=== PATIENT | female | born 1935 | race Caucasian/White ===

== ENCOUNTER 2017-07-25 06:54 | Inpatient (IN) | payer MEDICARE, OTHER ==
--- NOTE | 2017-07-25 07:43 | ED Physician Documentation ---
Altered Mental Status - HISTORIAN Historian: patient - HPI Stated Complaint: hi bs last noct over 500 Chief Complaint: Altered Mental Status Additional Information: pt adm w ams-will not answer questions plus bs last noct more than 500 and fsbs this [id number]. she is not in apparent distress-lies quietly mooves appropriately but will not respond to questions Onset: days ago (1-2), continues in ED Last known Well Date: 07/24/17 Last Known Well Time: 12:00 Last known Well Code/Unknown Code: Unknown Character of Altered Mental Status: other (just does not answer questions). denies: confused, combative, agitated Context: [facility] resident, chronic dementia Cognition is Usually: poor alertness Associated Symptoms: vomiting - ROS EYES/ENT: problems with vision CVS/RESP: none GI/: vomiting (last noct). denies: abdominal pain MS/SKIN/LYMPH: other - PAST HX Past History: confusion, diabetes Type 2, dementia, other (htn gerd uti neuropathic ub prev cva) Other History: hyperlipidemia, hypertension Allergies/Adverse Reactions: Allergies Allergy/AdvReac Type Severity Reaction Status Date / Time No Known Allergies Allergy Verified 07/25/17 07:09 Home Medications: Ambulatory Orders Medication Instructions Recorded Acetaminophen [Non-Aspirin] 2 tab PO BID 07/25/17 Aspirin [Aspirin EC] 1 tab PO DAILY 07/25/17 Docusate Sodium [Move It Along] 1 tab PO DAILY 07/25/17 Metoprolol Succinate [Toprol Xl] 1 tab PO BID 07/25/17 - SOCIAL HX Smoking History: non-smoker Alcohol Use: none Drug Use: none - FAMILY HX Family History: no significant history - VITAL SIGNS Vital Signs: Vital Signs Temp Pulse Resp BP Pulse Ox 96.7 F L 114 H 16 166/74 96 07/25/17 06:54 07/25/17 10:07 07/25/17 10:07 07/25/17 10:07 07/25/17 10:07 - REVIEWED ASSESSMENTS Nursing Assessment Reviewed: Yes Vitals Reviewed: Yes ED Results Lab/Radiology - Lab Results Lab Results: Lab Results 07/25/17 07/25/17 07:30 07:30 WBC 15.60 K/ul H K/ul (4.00-12.00) RBC 4.97 M/ul M/ul (3.90-5.20) Hgb 14.2 g/dL g/dL (12.0-16.0) Hct 44.5 % % (34.5-46.5) MCV 89.7 fl fl (80.0-100.0) MCH 28.7 pg pg (28.0-34.0) MCHC 31.9 g/dL g/dL (30.0-36.0) RDW 14.7 % H % (11.3-14.3) Plt Count 454 K/mm3 H K/mm3 (130-400) Neut % (Auto) 91.1 % H % (39.0-79.0) Lymph % (Auto) 3.8 % L % (16.0-50.0) [place] % (Auto) 4.2 % % (0.0-11.0) Eos % (Auto) 0.3 % % (0.0-6.8) Baso % (Auto) 0.1 (0.0-1.5) Neut # (Auto) 14.2 # k/uL H # k/uL (1.4-7.7) Lymph # (Auto) 0.6 # k/uL # k/uL (0.6-4.0) [place] # (Auto) 0.7 # k/uL # k/uL (0.0-0.9) Eos # (Auto) 0.0 # k/uL # k/uL (0.0-0.6) Baso # (Auto) 0.0 # k/uL # k/uL (0.0-0.5) Reactive Lymphs % 0.5 % % (0.0-5.0) Reactive Lymphs # 0.1 # k/uL # k/uL (0.0-0.8) Sodium 146 mmol/L H mmol/L (136-145) Potassium 4.4 mmol/L mmol/L (3.5-5.1) Chloride 105 mmol/L mmol/L (98-107) Carbon Dioxide 28 mmol/L mmol/L (22-30) BUN 39 mg/dL H mg/dL (7-17) Creatinine 0.80 mg/dL mg/dL (0.52-1.04) Estimated Creat Clear 85 Est GFR ( Amer) > 60 (60 - ) Est GFR (Non-Af Amer) > 60 (60 - ) Glucose 390 mg/dL H mg/dL (74-106) Calcium 10.5 mg/dL H mg/dL (8.4-10.2) Total Bilirubin 0.2 mg/dL mg/dL (0.2-1.3) AST 15 U/L U/L (15-46) ALT 28 U/L U/L (13-69) Alkaline Phosphatase 93 U/L U/L (38-126) Total Protein 7.4 g/dL g/dL (6.3-8.2) Albumin 4.7 g/dL g/dL (3.5-5.0) - Orders Orders: ED Orders Category Date Time Status Assess pulse oximetry Q1H Care 07/25/17 07:46 Active Continuous EKG monitoring Q1H Care 07/25/17 07:46 Active Document Bowel Movement Q8H Care 07/25/17 10:[address] Babcock NOW Care 07/25/17 10:45 Ordered Further Nursing Orders 1T Care 07/25/17 10:45 Active Inpatient Telemetry NOW Care 07/25/17 10:45 Ordered Monitor for changes in mental Q2H Care 07/25/17 10:[address] IV Lock 1T Care 07/25/17 07:47 Active Regular Diet 07/25/17 Dinner Ordered Regular Diet 07/25/17 Lunch Ordered CBC/PLATELET/DIFF Routine Lab 07/25/17 07:30 Completed CMP Routine Lab 07/25/17 07:30 Completed INSULIN 1 Stat Lab 07/25/17 07:49 Received URINALYSIS Routine Lab 07/25/17 Ordered 0.9 % Sodium Chloride [Normal Saline] 1,000 ml Med 07/25/17 08:00 Discontinued IV Q10H 0.9 % Sodium Chloride [Normal Saline] 1,000 ml Med 07/25/17 07:58 Discontinued IV Q1H Chem Sticks Med 07/25/17 08:00 Active 1 each CHEMQ Chem Sticks Med 07/25/17 09:15 Discontinued 1 each CHEMQ Docusate Sodium [Move It Along] Med 07/26/17 09:00 Ordered 1 tab PO DAILY Fenofibrate Nanocrystallized [Tricor] Med 07/26/17 09:00 Ordered 145 mg PO DAILY Insulin Regular, Human [Humulin R] Med 07/25/17 09:05 Discontinued 5 unit SQ NOW ONE Losartan/Hydrochlorothiazide [Hyzaar 100-25 Tablet] Med 07/26/17 09:00 Ordered 1 each PO DAILY Memantine HCl [Namenda] Med 07/25/17 21:00 Active 10 mg PO BID Metoprolol Succinate [Toprol Xl] Med 07/25/17 21:00 Discontinued 1 tab PO BID Transfer Routine Transfer 07/25/17 Completed Altered Mental Status Physical - Physical Exam General Appearance: moderate distress, other (looks around and moves inbed but will nor respond to questions). No: lethargic Neuro/Psych: depression, other (will no answer questions - says not unusual-does not ambulate except in wheel chair) abnml respond to command. No: eyes open Peripheral Exam: motor nml, sensation nml, reflexes nml HEENT: other (must force eyes open -they appear normal says this is notunusual for her) Neck: normal inspection Respiratory: no resp distress, chest non-tender, breath sounds normal CVS: reg rate & rhythm, heart sounds normal Abdomen: non-tender, no distention Skin: warm/dry, normal color. No: cyanosis, diaphoresis, jaundice, mottled Extremities: non-tender, normal range of motion, no edema Discharge Clincal Impression: uncontrolled diabetes mellitus, s/p cva adv dementia Comments: julia bhatti/zabrina and DR BABCOCK admit Condition: Fair Disposition: ADMITTED INPATIENT Decision to Admit: [id number] Decision Time: 11:16
[2017-07-25] MEDS ORDERED: 0.9 % SODIUM CHLORIDE 1,000 ML IV ONE ×2 (07:55→07:58)
[2017-07-25] MEDS ORDERED: 0.9 % SODIUM CHLORIDE 1,000 ML IV SCH (08:00)
[2017-07-25 08:04] LABS: BASOPHILS % 0.1 (0.0-1.5); EOSINOPHILS % 0.3 % (0.0-6.8); MEAN CORPUSCULAR HEMOGLOBIN 28.7 pg (28.0-34.0); MEAN CORPUSCULAR VOLUME 89.7 fl (80.0-100.0); MONOCYTES % 4.2 % (0.0-11.0); NEUTROPHILS # 14.2 # k/uL (1.4-7.7); eGFR (African) > 60; eGFR (Non-African) > 60
[2017-07-25] MEDS ORDERED: INSULIN REGULAR, HUMAN 100 UNIT/ML 3ML VIAL SQ ONE (09:05)
[2017-07-25] MEDS ORDERED: ACETAMINOPHEN 325 MG TABLET ONE (11:12)
[2017-07-25] MEDS ORDERED: MEMANTINE HCL 10 MG TABLET PO ONE (11:12)
--- NOTE | 2017-07-25 12:04 | History and Physical Report ---
History of Present Illnes - History of Present Illness Reason for Visit: decrease oral intaktake, hyperglycemia History of Present Illness: 81-year-old white female who is a resident at [facility]. Approximately 36 hours ago patient started having some nausea vomiting with some difficulties in keeping any oral intake down. Patient was reported to have vomited five times yesterday. Patient has had some loose bowel movements but no diarrhea. No hematemesis has been noted. No melena hematochezia has been appreciated. Patient is not had any fever or chills at the nursing staff is aware. Today patient started having elevated blood sugars in the 400s. Patient is diabetic but is on oral hypoglycemic agents only. Patient was subsequently transferred to the ED. Since patient was not having good oral intake and was elected to admit the patient for further care and evaluation. It appears that the patient may need insulin therapy in order to maintain her blood sugars in the immediate future. Patient is usually not converses however she usually is up in a wheelchair propel herself around which she has not been doing. 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: CVA, Dementia (alzheimer's), Other (RLS) Gastrointestinal: Constipation, GERD Heme/Onc: Anemia NOS Endocrine: Diabetes (type 2), Other (vit D def) - Past Surgical History Past Surgical History: Hysterectomy, Tonsillectomy - Past Family History Father Family History: Mother Family History: CAD, - Past Social History Smoke: No Occupation: retired Alcohol: None Drugs: None Lives: Shelter Domestic Violence: Negative - Health Maintenance Health Maintenance: Influenza Vaccine, Pneumococcal Vaccine Influenza Vaccine: Current for this Influenza Season Pneumonia Vaccine: Yes Resuscitation Status: DNR - Unable to Obtain History Unable to Obtain: Yes Review of Systems - Review of Systems Constitutional: Weakness. negative: Fever, Chills Eyes: negative: pain, conjunctivae inflammation ENT: negative: Ear Discharge, Nose Discharge, Nose Congestion, Mouth Swelling Respiratory: negative: Cough, Shortness of Breath, Hemoptysis, SOB with Excertion, Wheezing Cardiovascular: negative: Chest Pain, Palpitations, Edema Gastrointestinal: Nausea, Vomiting. negative: Abdominal Pain, Diarrhea, Constipation, Hematochezia Genitourinary: Incontinence. negative: Dysuria, Frequency Musculoskeletal: negative: Neck Pain, Back Pain Skin: negative: Rash Neurological: Weakness, Confusion. negative: Numbness - Medications/Allergies Allergies/Adverse Reactions: Allergies Allergy/AdvReac Type Severity Reaction Status Date / Time No Known Allergies Allergy Verified 07/25/17 07:09 Home Medications: Home Medications Acetaminophen [Non-Aspirin] 2 tab PO BID 07/25/17 Aspirin [Aspirin EC] 1 tab PO DAILY 07/25/17 Docusate Sodium [Move It Along] 1 tab PO DAILY 07/25/17 Metoprolol Succinate [Toprol Xl] 1 tab PO BID 07/25/17 Current Inpatient Medications: Current Inpatient Medications Acetaminophen (Tylenol) 325 mg PO BID ADONIS Aspirin (Ecotrin) 81 mg PO DAILY ADONIS Docusate Sodium (Docusol Kids) 100 mg PO DAILY ADONIS Fenofibrate (Tricor) 160 mg PO QD ADONIS Hydrochlorothiazide (Hydrodiuril) 25 mg PO QD ADONIS Losartan Potassium (Cozaar) 100 mg PO QD ADONIS Memantine (Namenda) 10 mg PO BID ADONIS Metoprolol Tartrate (Lopressor) 25 mg PO BID [facility] Miscellaneous (Chem Sticks) 1 each CHEMQID [facility] Exam - Exam Vital Signs: Vital Signs (72 hours) 07/25/17 07/25/17 10:07 10:18 Temperature 98.1 F Pulse Rate [ 114 H 114 H Left Pulse ox] Respiratory 16 24 Rate Blood Pressure 166/74 194/77 [Right Arm] O2 Sat by Pulse 96 98 Oximetry General: Alert (wake, does no respond to verbal qestioning), No acute distress. No: Oriented to Person, Oriented to Place, Oriented to Time HEENT: Atraumatic, PERRLA, Nose Mucous membr. moist/[place]. No: Mouth Mucous membr. moist/[place] (dry) Neck: No: Stridor, Rigidity, Lymphadenopathy Carotids: WNL Thyroid: WNL Lungs: Clear to auscultation, Normal air movement. No: Speaks full Sentences, Respiratory Distress, Wheezes, Rales, Rhonchi Cardiovascular: Regular rate, Normal S1, Normal S2, No murmurs Abdomen: Normal bowel sounds, Soft, No tenderness, No hepatospenomegaly, No masses. No: Distended Integumentary: Normal, [place], Warm, Dry Extremities: No clubbing, No cyanosis, No edema Neurological: Strength Equal Bilat, Normal tone, Cranial nerves 3-12 NL, Reflexes 2+ Psych/Mental Status: No: Mental status NL (at baseline), Appropriate Affect, Intact Judgment Assessment/Plan - Assessment/Plan (1) Dehydration Status: Acute Current Visit: Yes Plan: I will start the patient on normal saline which lobe rehydration. Will watch patient urinary output. Will recheck electrolytes in the a.m. Patient does have a mild elevated sodium at this time. (2) Dementia Status: Chronic Current Visit: No Qualifiers: Dementia type: Alzheimer's disease Assessment: monitor (3) Hypertension Status: Acute Current Visit: No Plan: continue home meds (4) Diabetes type 2, uncontrolled Status: Acute Current Visit: Yes Qualifiers: Diabetes mellitus complication status: without complication Diabetes mellitus intermediate insulin use: without manager intermediate use Qualified Code(s): E11.65 - Type 2 diabetes mellitus with hyperglycemia Assessment: We will monitor patient blood sugars. Patient may need to be started on sliding scale insulin. Will encourage oral intake. (5) Nausea and vomiting Status: Acute Current Visit: Yes Plan: Patient will have Zofran ordered for IV use if needed. Suspect the patient may have a viral gastroenteritis. Patient does have a leukocytosis at this time. Will get a urine specimen and a chest x-ray to rule out other etiology. Patient did have an Abdominal film done yesterday which was felt to be normal. VTE Assessment - RISK FACTOR SCORE VTE RISK FACTOR SCORES: AGE OVER 60 YEARS, ACUTE INFECTION OTHER THEN SEPSIS - RISK VTE MODERATE RISK: SCORE OF 2 (RISK PROXIMAL DVT 2-4%) PROPHYAXIS NEEDED
[2017-07-25] MEDS ORDERED: ONDANSETRON HCL/PF 4 MG/ 2ML VIAL IVP ONE (12:07)
[2017-07-25] MEDS ORDERED: 0.9 % SODIUM CHLORIDE 250 ML IV.SOLN IV SCH ×2 (12:30→14:00)
[2017-07-25] MEDS ORDERED: ENOXAPARIN SODIUM 30 MG/0.3 ML DISP.SYRIN SQ SCH (13:00)
[2017-07-25 14:00] LABS: APPEARANCE,URINE CLOUDY (CLEAR); COLOR,URINE YELLOW (YELLOW); OCCULT BLOOD,URINE 1+ (NEGATIVE); PH URINE 5.5 (5.0 - 8.0); UROBILINOGEN URINE 0.2 Eu (0.2-1.0)
[2017-07-25] MEDS ORDERED: ASPIRIN EC 81 MG TABLET.DR ONE (14:05)
[2017-07-25] MEDS: LOSARTAN POTASSIUM 50 MG TABLET PO SCH (14:35)
[2017-07-25] MEDS: DOCUSATE SODIUM 100 MG/10 ML S/F LIQUID PO SCH (14:36)
[2017-07-25] MEDS: HYDROCHLOROTHIAZIDE 25 MG TABLET PO SCH (14:37)
[2017-07-25] MEDS: FENOFIBRATE 160 MG TABLET PO SCH (14:37)
[2017-07-25] MEDS: ENOXAPARIN SODIUM 30 MG/0.3 ML DISP.SYRIN SQ SCH (14:38)
[2017-07-25] MEDS: 0.9 % SODIUM CHLORIDE 1,000 ML IV SCH (14:57)
[2017-07-25 16:14] LABS: AMORPHOUS SEDIMENT,UR FEW (NEGATIVE)
[2017-07-25 19:53] VITALS: BMI 29.0
[2017-07-25] MEDS: METOPROLOL TARTRATE 25 MG TABLET PO SCH (20:59)
[2017-07-25] MEDS: ACETAMINOPHEN 325 MG TABLET PO SCH (21:00)
[2017-07-25] MEDS: MEMANTINE HCL 10 MG TABLET PO SCH (21:00)
[2017-07-25] MEDS ORDERED: ACETAMINOPHEN 325 MG TABLET PO SCH (21:00)
[2017-07-25] MEDS ORDERED: METOPROLOL SUCCINATE PO SCH (21:00)
[2017-07-26] MEDS: 0.9 % SODIUM CHLORIDE 1,000 ML IV SCH
[2017-07-26 07:16] LABS: BASOPHILS % 0.1 (0.0-1.5); EOSINOPHILS % 0.1 % (0.0-6.8); MEAN CORPUSCULAR HEMOGLOBIN 27.8 pg (28.0-34.0); MEAN CORPUSCULAR VOLUME 94.7 fl (80.0-100.0); NEUTROPHILS # 15.5 # k/uL (1.4-7.7)
[2017-07-26 07:46] LABS: eGFR (African) > 60; eGFR (Non-African) > 60
[2017-07-26] MEDS ORDERED: INSULIN REGULAR, HUMAN 100 UNIT/ML 3ML VIAL SQ ONE ×2 (07:54→10:48)
[2017-07-26] MEDS ORDERED: CIPROFLOXACIN/D5W 400 MG in PREMIX BAG 1 BAG IV SCH (08:30)
[2017-07-26] MEDS ORDERED: FENOFIBRATE NANOCRYSTALLIZED 145 MG PO SCH (09:00)
[2017-07-26] MEDS ORDERED: INSULIN REGULAR, HUMAN 100 UNIT/ML 3ML VIAL SQ SCH (09:00)
[2017-07-26] MEDS ORDERED: HYDROCHLOROTHIAZIDE PO SCH (09:00)
[2017-07-26] MEDS ORDERED: LOSARTAN PO SCH (09:00)
[2017-07-26] MEDS ORDERED: DOCUSATE SODIUM PO SCH (09:00)
[2017-07-26] MEDS ORDERED: DEXTROSE 5 %-0.45 % SOD CHLORD 1,000 ML IV SCH (09:00)
[2017-07-26] MEDS ORDERED: ASPIRIN EC 81 MG TABLET.DR PO SCH (09:00)
[2017-07-26] MEDS: DOCUSATE SODIUM 100 MG/10 ML S/F LIQUID PO SCH (09:07)
[2017-07-26] MEDS: ACETAMINOPHEN 325 MG TABLET PO SCH ×2 (09:07→20:39)
[2017-07-26] MEDS: ASPIRIN EC 81 MG TABLET.DR PO SCH (09:08)
[2017-07-26] MEDS: METOPROLOL TARTRATE 25 MG TABLET PO SCH ×2 (09:08→20:39)
[2017-07-26] MEDS: MEMANTINE HCL 10 MG TABLET PO SCH ×2 (09:08→20:39)
[2017-07-26] MEDS ORDERED: cefTRIAXone SODIUM 1 GM VIAL ONE (09:36)
[2017-07-26] MEDS: cefTRIAXone SODIUM 1 GM in 0.9 % SODIUM CHLORIDE 50 ML IV SCH (09:47)
[2017-07-26] MEDS: INSULIN REGULAR, HUMAN 100 UNIT/ML 3ML VIAL SQ SCH ×3 (12:55→20:39)
[2017-07-26] MEDS: LOSARTAN POTASSIUM 50 MG TABLET PO SCH (12:55)
[2017-07-26] MEDS: FENOFIBRATE 160 MG TABLET PO SCH (12:55)
[2017-07-26] MEDS: HYDROCHLOROTHIAZIDE 25 MG TABLET PO SCH (12:55)
[2017-07-26] MEDS: PIPERACILLIN SODIUM/TAZOBACTAM 3.375 GM VIAL IV SCH ×2 (13:44→18:02)
[2017-07-26] MEDS ORDERED: SODIUM CHLORIDE 0.45 % 1,000 ML IV SCH (16:00)
[2017-07-26] MEDS: ENOXAPARIN SODIUM 30 MG/0.3 ML DISP.SYRIN SQ SCH (16:02)
--- NOTE | 2017-07-26 17:51 | Diagnostic Imaging Report ---
[facility]MED SURG [facility] [id number] Formerly [facility], [facility] [address] [place] [address]. [id number] Report Submission Date: Jul 26, 2017 11:02:23 AM CDT Patient Study Name: MARÍA ELENA PARKER Date: Jul 26, 2017 9:31:07 AM CDT Modality Type: DX Gender: F Description: ABDOMEN : 35 Institution: [facility] Physician: [facility] /MED SURG Examination: Obstruction series History: PORTABLE KUB, NAUSEA/ VOMITING, PT UNABLE TO FOLLOW BREATHING INSTRUCTIONS OR GIVE MORE HX (Hx) Findings: 2 views obtained of the abdomen. Motion artifact and body habitus limits sensitivity. Loops of stool and air filled large bowel. No definite small bowel dilation. Lumbar degenerative changes and curvature. Right hip fixation hardware. Impression: Limited examination without definite evidence for obstruction. Electronically signed on Jul 26, 2017 11:02:23 AM CDT by: Fernando DIEGO
--- NOTE | 2017-07-26 17:51 | Diagnostic Imaging Report ---
[facility] [id number] Formerly [facility] [address] [id number] Report Submission Date: Jul 26, 2017 11:04:06 AM CDT Patient Study Name: MARÍA ELENA PARKER Date: Jul 26, 2017 9:39:56 AM CDT Modality Type: DX Gender: F Description: CHEST : 35 Institution: [facility] Physician: [facility]/MED SURG Examination: Portable chest History: PCXR, LEUKOCYTOSIS, PT UNABLE TO HOLD BREATH OR GIVE FURTHER HX (Hx) Comparison exam: None provided. Findings: Single view of the chest demonstrates a hypoventilated inspiratory effort resulting in crowding of the cardiac and mediastinal silhouette. Mildly tortuous aorta. Mild lung base parenchymal haziness. No blunting of the costophrenic margins. Osseous structures are appropriate for age. Impression: Poor inspiratory effort. Mild lung base parenchymal haziness. No evidence for effusion. Electronically signed on Jul 26, 2017 11:04:06 AM CDT by: Fernando DIEGO
[2017-07-27] MEDS: PIPERACILLIN SODIUM/TAZOBACTAM 3.375 GM VIAL IV SCH ×4 (00:54→16:26)
[2017-07-27] MEDS ORDERED: cefTRIAXone SODIUM 1 GM VIAL ONE (03:13)
[2017-07-27] MEDS: INSULIN REGULAR, HUMAN 100 UNIT/ML 3ML VIAL SQ SCH ×4 (07:28→22:45)
[2017-07-27] MEDS: ASPIRIN EC 81 MG TABLET.DR PO SCH (09:55)
[2017-07-27] MEDS: DOCUSATE SODIUM 100 MG/10 ML S/F LIQUID PO SCH (09:55)
[2017-07-27] MEDS: FENOFIBRATE 160 MG TABLET PO SCH (09:55)
[2017-07-27] MEDS: HYDROCHLOROTHIAZIDE 25 MG TABLET PO SCH (09:55)
[2017-07-27] MEDS: METOPROLOL TARTRATE 25 MG TABLET PO SCH ×2 (09:57→22:34)
[2017-07-27] MEDS: MEMANTINE HCL 10 MG TABLET PO SCH ×2 (10:04→22:32)
[2017-07-27] MEDS: ACETAMINOPHEN 325 MG TABLET PO SCH ×2 (10:14→22:32)
[2017-07-27] MEDS: cefTRIAXone SODIUM 1 GM in 0.9 % SODIUM CHLORIDE 50 ML IV SCH (10:14)
--- NOTE | 2017-07-27 10:55 | Inpatient Progress Note ---
Subjective - Required Recertification Statement I anticipate X number of days because-include discharge plan: 2 days - Review of Systems Events since last encounter: Patient is doing better today. Patient is more mentally awake and alert. Patient is starting to take a little bit. Patient does not follow commands well. Patient is not talking but does seem to be her baseline. Patient did not appear to be in any distress. General: Denies: Chills Objective - Exam Vitals and I&O: Vital Signs Temp 98.5 F 07/27/17 09:30 Pulse 87 07/27/17 09:30 Resp 20 07/27/17 09:30 BP 153/61 07/27/17 09:30 Pulse Ox 94 07/27/17 09:30 Intake & Output 07/26/17 07/26/17 07/27/17 11:59 23:59 11:59 Intake Total 1346 1231 1375 Balance 1346 1231 1375 Weight 83.915 kg Intake: IV 417 342 8541 Left Forearm 271 1375 Left Hand 986 Oral 360 960 0 Other: Voiding Method Incontinent Diaper # Voids 2 1 2 General: Alert, Cooperative. No: Oriented to Person, Oriented to Place, Oriented to Time Neck: Supple, No JVD Lungs: Clear to auscultation, Normal air movement. No: Respiratory Distress, Wheezes, Rales, Rhonchi Cardiovascular: Regular rate, Normal S1, Normal S2, No murmurs. No: Gallops Abdomen: Normal bowel sounds, Soft, No tenderness Skin: Normal, [place], Warm, Dry Neurological: Strength Equal Bilat, Normal tone Psych/Mental Status: No: Mental status NL, Intact Judgment - Results Results: Laboratory Results WBC 17.00 K/ul (4.00-12.00) H 07/26/17 06:45 RBC 4.12 M/ul (3.90-5.20) 07/26/17 06:45 Hgb 11.4 g/dL (12.0-16.0) L 07/26/17 06:45 Hct 39.0 % (34.5-46.5) 07/26/17 06:45 MCV 94.7 fl (80.0-100.0) 07/26/17 06:45 MCH 27.8 pg (28.0-34.0) L 07/26/17 06:45 MCHC 29.3 g/dL (30.0-36.0) L 07/26/17 06:45 RDW 14.6 % (11.3-14.3) H 07/26/17 06:45 Plt Count 390 K/mm3 (130-400) 07/26/17 06:45 Neut % (Auto) 90.9 % (39.0-79.0) H 07/26/17 06:45 Lymph % (Auto) 4.4 % (16.0-50.0) L 07/26/17 06:45 [place] % (Auto) 4.0 % (0.0-11.0) 07/26/17 06:45 Eos % (Auto) 0.1 % (0.0-6.8) 07/26/17 06:45 Baso % (Auto) 0.1 (0.0-1.5) 07/26/17 06:45 Neut # (Auto) 15.5 # k/uL (1.4-7.7) H 07/26/17 06:45 Lymph # (Auto) 0.8 # k/uL (0.6-4.0) 07/26/17 06:45 [place] # (Auto) 0.7 # k/uL (0.0-0.9) 07/26/17 06:45 Eos # (Auto) 0.0 # k/uL (0.0-0.6) 07/26/17 06:45 Baso # (Auto) 0.0 # k/uL (0.0-0.5) 07/26/17 06:45 Reactive Lymphs % 0.6 % (0.0-5.0) 07/26/17 06:45 Reactive Lymphs # 0.1 # k/uL (0.0-0.8) 07/26/17 06:45 Sodium 150 mmol/L (136-145) H 07/26/17 06:45 Potassium 3.6 mmol/L (3.5-5.1) 07/26/17 06:45 Chloride 111 mmol/L (98-107) H 07/26/17 06:45 Carbon Dioxide 26 mmol/L (22-30) 07/26/17 06:45 BUN 38 mg/dL (7-17) H 07/26/17 06:45 Creatinine 0.70 mg/dL (0.52-1.04) 07/26/17 06:45 Estimated Creat Clear 98 07/26/17 06:45 Est GFR ( Amer) > 60 (60-) 07/26/17 06:45 Est GFR (Non-Af Amer) > 60 (60-) 07/26/17 06:45 Glucose 320 mg/dL (74-106) H 07/26/17 06:45 Insulin Level 53 uIU/mL 07/25/17 07:49 Lactate 3.9 U/L (0.7-2.1) H 07/25/17 07:30 Calcium 9.5 mg/dL (8.4-10.2) 07/26/17 06:45 Total Bilirubin 0.2 mg/dL (0.2-1.3) 07/26/17 06:45 AST 25 U/L (15-46) 07/26/17 06:45 ALT 30 U/L (13-69) 07/26/17 06:45 Alkaline Phosphatase 81 U/L (38-126) 07/26/17 06:45 Total Protein 6.2 g/dL (6.3-8.2) L 07/26/17 06:45 Albumin 3.8 g/dL (3.5-5.0) 07/26/17 06:45 Urine Color Yellow (YELLOW) 07/25/17 14:00 Urine Appearance Cloudy (CLEAR) H 07/25/17 14:00 Urine pH 5.5 (5.0 - 8.0) 07/25/17 14:00 Ur Specific [place] 1.020 (1.010-1.030) 07/25/17 14:00 Urine Protein 1+ mg/dL (NEGATIVE) H 07/25/17 14:00 Urine Ketones 1+ mg/dL (NEGATIVE) H 07/25/17 14:00 Urine Occult Blood 1+ (NEGATIVE) H 07/25/17 14:00 Urine Nitrite Negative (NEGATIVE) 07/25/17 14:00 Urine Bilirubin Negative (NEGATIVE) 07/25/17 14:00 Urine Urobilinogen 0.2 Eu (0.2-1.0) 07/25/17 14:00 Ur Leukocyte Esterase Negative (NEGATIVE) 07/25/17 14:00 Urine RBC 0-2 (0-2 HPF) 07/25/17 14:00 Urine WBC 5-10 (0-5 HPF) H 07/25/17 14:00 Amorphous Sediment Few (NEGATIVE) H 07/25/17 14:00 Urine Bacteria Moderate (NEGATIVE) H 07/25/17 14:00 Urine Glucose 2+ mg/dL (NEGATIVE) H 07/25/17 14:00 Assessment/Plan - Assessment/Plan (1) Sepsis due to urinary tract infection Status: Acute Assessment: Awaiting blood and urine cultures. Patient appeared to be clinically improved. (2) Dehydration Status: Resolved Assessment: imroved, BUN is improving. Creatinine is stable. (3) Dementia Status: Chronic Qualifiers: Dementia type: Alzheimer's disease Assessment: stable (4) Hypertension Status: Chronic Qualifiers: Hypertension type: essential hypertension Qualified Code(s): I10 - Essential (primary) hypertension Assessment: stable on home meds (5) Diabetes type 2, uncontrolled Status: Acute Qualifiers: Diabetes mellitus half-way insulin use: without half-way use Diabetes mellitus complication status: without complication Qualified Code(s): E11.65 - Type 2 diabetes mellitus with hyperglycemia Assessment: Bllod sugars are better running in the mid 200 range will increase sliding scale. If continues to be elevated will start Levemir. (6) Nausea and vomiting Status: Acute Assessment: No further vomiting over the last 24 hours.
--- NOTE | 2017-07-27 10:55 | Inpatient Progress Note ---
Subjective - Required Recertification Statement I anticipate X number of days because-include discharge plan: 2 days - Review of Systems Events since last encounter: Patient does seem to be a little bit more mentally awake and alert at this time but still is not eating or drinking well. Patient does not appear to be in any gross discomfort at this time. Objective - Exam Vitals and I&O: Vital Signs Temp 98.5 F 07/27/17 09:30 Pulse 87 07/27/17 09:30 Resp 20 07/27/17 09:30 BP 153/61 07/27/17 09:30 Pulse Ox 94 07/27/17 09:30 Intake & Output 07/26/17 07/26/17 07/27/17 11:59 23:59 11:59 Intake Total 1346 1231 1375 Balance 1346 1231 1375 Weight 83.915 kg Intake: IV 381 018 3100 Left Forearm 271 1375 Left Hand 986 Oral 360 960 0 Other: Voiding Method Incontinent Diaper # Voids 2 1 2 General: Cooperative, No acute distress. No: Alert, Oriented to Person, Oriented to Place, Oriented to Time Neck: Supple, No JVD Lungs: Clear to auscultation, Normal air movement. No: Wheezes, Rales, Rhonchi Cardiovascular: Regular rate, Normal S1, Normal S2, No murmurs Abdomen: Normal bowel sounds, Soft, No tenderness, No masses Extremities: No clubbing, No cyanosis, No edema Skin: Normal, [place], Warm, Dry Neurological: Strength Equal Bilat, Normal tone - Results Results: Laboratory Results WBC 17.00 K/ul (4.00-12.00) H 07/26/17 06:45 RBC 4.12 M/ul (3.90-5.20) 07/26/17 06:45 Hgb 11.4 g/dL (12.0-16.0) L 07/26/17 06:45 Hct 39.0 % (34.5-46.5) 07/26/17 06:45 MCV 94.7 fl (80.0-100.0) 07/26/17 06:45 MCH 27.8 pg (28.0-34.0) L 07/26/17 06:45 MCHC 29.3 g/dL (30.0-36.0) L 07/26/17 06:45 RDW 14.6 % (11.3-14.3) H 07/26/17 06:45 Plt Count 390 K/mm3 (130-400) 07/26/17 06:45 Neut % (Auto) 90.9 % (39.0-79.0) H 07/26/17 06:45 Lymph % (Auto) 4.4 % (16.0-50.0) L 07/26/17 06:45 [place] % (Auto) 4.0 % (0.0-11.0) 07/26/17 06:45 Eos % (Auto) 0.1 % (0.0-6.8) 07/26/17 06:45 Baso % (Auto) 0.1 (0.0-1.5) 07/26/17 06:45 Neut # (Auto) 15.5 # k/uL (1.4-7.7) H 07/26/17 06:45 Lymph # (Auto) 0.8 # k/uL (0.6-4.0) 07/26/17 06:45 [place] # (Auto) 0.7 # k/uL (0.0-0.9) 07/26/17 06:45 Eos # (Auto) 0.0 # k/uL (0.0-0.6) 07/26/17 06:45 Baso # (Auto) 0.0 # k/uL (0.0-0.5) 07/26/17 06:45 Reactive Lymphs % 0.6 % (0.0-5.0) 07/26/17 06:45 Reactive Lymphs # 0.1 # k/uL (0.0-0.8) 07/26/17 06:45 Sodium 150 mmol/L (136-145) H 07/26/17 06:45 Potassium 3.6 mmol/L (3.5-5.1) 07/26/17 06:45 Chloride 111 mmol/L (98-107) H 07/26/17 06:45 Carbon Dioxide 26 mmol/L (22-30) 07/26/17 06:45 BUN 38 mg/dL (7-17) H 07/26/17 06:45 Creatinine 0.70 mg/dL (0.52-1.04) 07/26/17 06:45 Estimated Creat Clear 98 07/26/17 06:45 Est GFR ( Amer) > 60 (60-) 07/26/17 06:45 Est GFR (Non-Af Amer) > 60 (60-) 07/26/17 06:45 Glucose 320 mg/dL (74-106) H 07/26/17 06:45 Insulin Level 53 uIU/mL 07/25/17 07:49 Lactate 3.9 U/L (0.7-2.1) H 07/25/17 07:30 Calcium 9.5 mg/dL (8.4-10.2) 07/26/17 06:45 Total Bilirubin 0.2 mg/dL (0.2-1.3) 07/26/17 06:45 AST 25 U/L (15-46) 07/26/17 06:45 ALT 30 U/L (13-69) 07/26/17 06:45 Alkaline Phosphatase 81 U/L (38-126) 07/26/17 06:45 Total Protein 6.2 g/dL (6.3-8.2) L 07/26/17 06:45 Albumin 3.8 g/dL (3.5-5.0) 07/26/17 06:45 Urine Color Yellow (YELLOW) 07/25/17 14:00 Urine Appearance Cloudy (CLEAR) H 07/25/17 14:00 Urine pH 5.5 (5.0 - 8.0) 07/25/17 14:00 Ur Specific [place] 1.020 (1.010-1.030) 07/25/17 14:00 Urine Protein 1+ mg/dL (NEGATIVE) H 07/25/17 14:00 Urine Ketones 1+ mg/dL (NEGATIVE) H 07/25/17 14:00 Urine Occult Blood 1+ (NEGATIVE) H 07/25/17 14:00 Urine Nitrite Negative (NEGATIVE) 07/25/17 14:00 Urine Bilirubin Negative (NEGATIVE) 07/25/17 14:00 Urine Urobilinogen 0.2 Eu (0.2-1.0) 07/25/17 14:00 Ur Leukocyte Esterase Negative (NEGATIVE) 07/25/17 14:00 Urine RBC 0-2 (0-2 HPF) 07/25/17 14:00 Urine WBC 5-10 (0-5 HPF) H 07/25/17 14:00 Amorphous Sediment Few (NEGATIVE) H 07/25/17 14:00 Urine Bacteria Moderate (NEGATIVE) H 07/25/17 14:00 Urine Glucose 2+ mg/dL (NEGATIVE) H 07/25/17 14:00 Assessment/Plan - Assessment/Plan (1) Sepsis due to urinary tract infection Status: Acute Assessment: Patient on Zosyn, awaiting cultures (2) Dehydration Status: Resolved Assessment: prove, continue IV fluids (3) Dementia Status: Chronic Qualifiers: Dementia type: Alzheimer's disease Assessment: stable ,improved (4) Hypertension Status: Chronic Qualifiers: Hypertension type: essential hypertension Qualified Code(s): I10 - Essential (primary) hypertension Assessment: Stable on home medications. (5) Diabetes type 2, uncontrolled Status: Acute Qualifiers: Diabetes mellitus o[place] insulin use: without intermediate use Diabetes mellitus complication status: without complication Qualified Code(s): E11.65 - Type 2 diabetes mellitus with hyperglycemia Assessment: Blood sugars continue to run high up into the 300s. Patient has been started on sliding scale insulin. (6) Nausea and vomiting Status: Acute Assessment: improved
[2017-07-27] MEDS: LOSARTAN POTASSIUM 50 MG TABLET PO SCH (13:50)
[2017-07-27] MEDS: ENOXAPARIN SODIUM 30 MG/0.3 ML DISP.SYRIN SQ SCH (14:20)
[2017-07-28] MEDS: PIPERACILLIN SODIUM/TAZOBACTAM 3.375 GM VIAL IV SCH ×4 (00:34→17:44)
[2017-07-28 06:35] LABS: BASOPHILS % 0.1 (0.0-1.5); EOSINOPHILS % 1.1 % (0.0-6.8); MEAN CORPUSCULAR HEMOGLOBIN 26.9 pg (28.0-34.0); MEAN CORPUSCULAR VOLUME 89.7 fl (80.0-100.0); MONOCYTES % 4.9 % (0.0-11.0); NEUTROPHILS # 5.7 # k/uL (1.4-7.7)
[2017-07-28 06:50] LABS: eGFR (African) > 60; eGFR (Non-African) > 60
[2017-07-28] MEDS: INSULIN REGULAR, HUMAN 100 UNIT/ML 3ML VIAL SQ SCH ×4 (07:48→20:49)
[2017-07-28] MEDS: ASPIRIN EC 81 MG TABLET.DR PO SCH ×2 (08:08→08:26)
[2017-07-28] MEDS: METOPROLOL TARTRATE 25 MG TABLET PO SCH ×2 (08:09→20:47)
[2017-07-28] MEDS: ACETAMINOPHEN 325 MG TABLET PO SCH ×3 (08:09→20:47)
[2017-07-28] MEDS: MEMANTINE HCL 10 MG TABLET PO SCH ×3 (08:10→20:47)
[2017-07-28] MEDS: DOCUSATE SODIUM 100 MG/10 ML S/F LIQUID PO SCH ×2 (08:11→08:24)
[2017-07-28] MEDS ORDERED: cefTRIAXone SODIUM 1 GM VIAL ONE (09:07)
[2017-07-28] MEDS: cefTRIAXone SODIUM 1 GM in 0.9 % SODIUM CHLORIDE 50 ML IV SCH (09:15)
--- NOTE | 2017-07-28 12:01 | Inpatient Progress Note ---
Subjective - Required Recertification Statement I anticipate X number of days because-include discharge plan: 1 day - Review of Systems Subjective: Patient appeared to be improving. Patient still remains nonverbal. Pulmonary: Denies: Dyspnea, Cough Gastrointestinal: Denies: Nausea, Vomiting Objective - Exam Vitals and I&O: Vital Signs Temp 97.8 F 07/28/17 10:00 Pulse 73 07/28/17 11:00 Resp 16 07/28/17 10:00 BP 187/65 07/28/17 10:00 Pulse Ox 97 07/28/17 10:00 Intake & Output 07/27/17 07/27/17 07/28/17 11:59 23:59 11:59 Intake Total 2750 1290 50 Output Total 0 0 Balance 2750 1290 50 Intake: IV 2750 900 Left Forearm 2750 900 Oral 0 390 50 Output: Stool 0 0 Other: Voiding Method Diaper Incontinent # Voids 2 1 General: Alert. No: Oriented to Person, Oriented to Place, Oriented to Time Neck: Supple, No JVD Lungs: Clear to auscultation, Normal air movement, Speaks full Sentences. No: Respiratory Distress, Wheezes, Rales, Rhonchi Cardiovascular: Regular rate, Normal S1, Normal S2, No murmurs, PAC Abdomen: Normal bowel sounds, Soft, No tenderness, No hepatospenomegaly, No masses Skin: Normal, [place], Warm, Dry Psych/Mental Status: No: Mental status NL, Intact Judgment - Results Results: Laboratory Results WBC 7.40 K/ul (4.00-12.00) 07/28/17 06:30 RBC 3.58 M/ul (3.90-5.20) L 07/28/17 06:30 Hgb 9.6 g/dL (12.0-16.0) L 07/28/17 06:30 Hct 32.1 % (34.5-46.5) L 07/28/17 06:30 MCV 89.7 fl (80.0-100.0) 07/28/17 06:30 MCH 26.9 pg (28.0-34.0) L 07/28/17 06:30 MCHC 30.0 g/dL (30.0-36.0) 07/28/17 06:30 RDW 14.3 % (11.3-14.3) 07/28/17 06:30 Plt Count 298 K/mm3 (130-400) 07/28/17 06:30 Neut % (Auto) 77.1 % (39.0-79.0) 07/28/17 06:30 Lymph % (Auto) 15.5 % (16.0-50.0) L 07/28/17 06:30 [place] % (Auto) 4.9 % (0.0-11.0) 07/28/17 06:30 Eos % (Auto) 1.1 % (0.0-6.8) 07/28/17 06:30 Baso % (Auto) 0.1 (0.0-1.5) 07/28/17 06:30 Neut # (Auto) 5.7 # k/uL (1.4-7.7) 07/28/17 06:30 Lymph # (Auto) 1.2 # k/uL (0.6-4.0) 07/28/17 06:30 [place] # (Auto) 0.4 # k/uL (0.0-0.9) 07/28/17 06:30 Eos # (Auto) 0.1 # k/uL (0.0-0.6) 07/28/17 06:30 Baso # (Auto) 0.0 # k/uL (0.0-0.5) 07/28/17 06:30 Reactive Lymphs % 1.3 % (0.0-5.0) 07/28/17 06:30 Reactive Lymphs # 0.1 # k/uL (0.0-0.8) 07/28/17 06:30 Sodium 144 mmol/L (136-145) 07/28/17 06:30 Potassium 3.1 mmol/L (3.5-5.1) L 07/28/17 06:30 Chloride 108 mmol/L (98-107) H 07/28/17 06:30 Carbon Dioxide 27 mmol/L (22-30) 07/28/17 06:30 BUN 23 mg/dL (7-17) H 07/28/17 06:30 Creatinine 0.70 mg/dL (0.52-1.04) 07/28/17 06:30 Estimated Creat Clear 98 07/28/17 06:30 Est GFR ( Amer) > 60 (60-) 07/28/17 06:30 Est GFR (Non-Af Amer) > 60 (60-) 07/28/17 06:30 Glucose 208 mg/dL (74-106) H 07/28/17 06:30 Insulin Level 53 uIU/mL 07/25/17 07:49 Lactate 3.9 U/L (0.7-2.1) H 07/25/17 07:30 Calcium 8.9 mg/dL (8.4-10.2) 07/28/17 06:30 Total Bilirubin 0.2 mg/dL (0.2-1.3) 07/26/17 06:45 AST 25 U/L (15-46) 07/26/17 06:45 ALT 30 U/L (13-69) 07/26/17 06:45 Alkaline Phosphatase 81 U/L (38-126) 07/26/17 06:45 Total Protein 6.2 g/dL (6.3-8.2) L 07/26/17 06:45 Albumin 3.8 g/dL (3.5-5.0) 07/26/17 06:45 Urine Color Yellow (YELLOW) 07/25/17 14:00 Urine Appearance Cloudy (CLEAR) H 07/25/17 14:00 Urine pH 5.5 (5.0 - 8.0) 07/25/17 14:00 Ur Specific [place] 1.020 (1.010-1.030) 07/25/17 14:00 Urine Protein 1+ mg/dL (NEGATIVE) H 07/25/17 14:00 Urine Ketones 1+ mg/dL (NEGATIVE) H 07/25/17 14:00 Urine Occult Blood 1+ (NEGATIVE) H 07/25/17 14:00 Urine Nitrite Negative (NEGATIVE) 07/25/17 14:00 Urine Bilirubin Negative (NEGATIVE) 07/25/17 14:00 Urine Urobilinogen 0.2 Eu (0.2-1.0) 07/25/17 14:00 Ur Leukocyte Esterase Negative (NEGATIVE) 07/25/17 14:00 Urine RBC 0-2 (0-2 HPF) 07/25/17 14:00 Urine WBC 5-10 (0-5 HPF) H 07/25/17 14:00 Amorphous Sediment Few (NEGATIVE) H 07/25/17 14:00 Urine Bacteria Moderate (NEGATIVE) H 07/25/17 14:00 Urine Glucose 2+ mg/dL (NEGATIVE) H 07/25/17 14:00 Assessment/Plan - Assessment/Plan (1) Sepsis due to urinary tract infection Status: Acute Assessment: Sensitivities to follow. Blood cultures so far no growth. (2) Dehydration Status: Resolved Assessment: off IV fluids at this time (3) Dementia Status: Chronic Qualifiers: Dementia type: Alzheimer's disease Assessment: stable (4) Hypertension Status: Chronic Qualifiers: Hypertension type: essential hypertension Qualified Code(s): I10 - Essential (primary) hypertension Assessment: Was up this AM when nauseated. better now 146/88 (5) Diabetes type 2, uncontrolled Status: Acute Qualifiers: Diabetes mellitus lease out man insulin use: without lease out man use Diabetes mellitus complication status: without complication Qualified Code(s): E11.65 - Type 2 diabetes mellitus with hyperglycemia Assessment: Running in the low to mid 200 range Plan: Will start Levimer (6) Nausea and vomiting Status: Acute Plan: Will start protonix, LFT are OK
[2017-07-28] MEDS: HYDROCHLOROTHIAZIDE 25 MG TABLET PO SCH (12:53)
[2017-07-28] MEDS: LOSARTAN POTASSIUM 50 MG TABLET PO SCH (12:53)
[2017-07-28] MEDS: FENOFIBRATE 160 MG TABLET PO SCH (12:54)
[2017-07-28] MEDS: INSULIN DETEMIR 100 UNIT/ML 3ML PEN.INJCTR SQ SCH ×2 (12:55→20:47)
[2017-07-28] MEDS ORDERED: PANTOPRAZOLE SODIUM INJ. 40 MG VIAL ONE (12:57)
[2017-07-28] MEDS: PANTOPRAZOLE SODIUM 40 MG in 0.9 % SODIUM CHLORIDE 50 ML IV SCH (13:21)
[2017-07-28] MEDS: ENOXAPARIN SODIUM 30 MG/0.3 ML DISP.SYRIN SQ SCH (14:04)
[2017-07-29] MEDS: PIPERACILLIN SODIUM/TAZOBACTAM 3.375 GM VIAL IV SCH ×3 (00:16→09:50)
[2017-07-29 06:23] LABS: BASOPHILS % 0.3 (0.0-1.5); EOSINOPHILS % 3.5 % (0.0-6.8); MEAN CORPUSCULAR HEMOGLOBIN 26.6 pg (28.0-34.0); MEAN CORPUSCULAR VOLUME 90.2 fl (80.0-100.0); MONOCYTES % 5.4 % (0.0-11.0); NEUTROPHILS # 3.9 # k/uL (1.4-7.7)
[2017-07-29 07:02] LABS: eGFR (African) > 60; eGFR (Non-African) > 60
[2017-07-29] MEDS: INSULIN REGULAR, HUMAN 100 UNIT/ML 3ML VIAL SQ SCH ×2 (07:32→12:59)
[2017-07-29] MEDS: PANTOPRAZOLE SODIUM 40 MG in 0.9 % SODIUM CHLORIDE 50 ML IV SCH (09:20)
[2017-07-29] MEDS: MEMANTINE HCL 10 MG TABLET PO SCH (09:33)
[2017-07-29] MEDS: DOCUSATE SODIUM 100 MG/10 ML S/F LIQUID PO SCH (09:33)
[2017-07-29] MEDS: METOPROLOL TARTRATE 25 MG TABLET PO SCH (09:33)
[2017-07-29] MEDS: ACETAMINOPHEN 325 MG TABLET PO SCH (09:33)
[2017-07-29] MEDS: ASPIRIN EC 81 MG TABLET.DR PO SCH (09:34)
[2017-07-29] MEDS ORDERED: PANTOPRAZOLE SODIUM INJ. 40 MG VIAL ONE (09:45)
[2017-07-29] MEDS: LOSARTAN POTASSIUM 50 MG TABLET PO SCH (12:58)
[2017-07-29] MEDS: HYDROCHLOROTHIAZIDE 25 MG TABLET PO SCH (12:58)
[2017-07-29] MEDS: FENOFIBRATE 160 MG TABLET PO SCH (12:58)
[2017-07-29] MEDS: ENOXAPARIN SODIUM 30 MG/0.3 ML DISP.SYRIN SQ SCH (13:04)
[2017-07-29] MEDS ORDERED: ceFAZolin SODIUM 1 GM VIAL ONE (13:35)
[2017-07-29] MEDS: cefTRIAXone SODIUM 1 GM in 0.9 % SODIUM CHLORIDE 50 ML IV SCH (13:44)
[2017-07-29 18:31] VITALS: BP 187/65
--- NOTE | 2017-08-11 19:49 | Discharge Summary ---
Discharge Summary - Discharge Sumary History of Present Illness: 81-year-old white female who is a resident at [facility]. Approximately 36 hours ago patient started having some nausea vomiting with some difficulties in keeping any oral intake down. Patient was reported to have vomited five times yesterday. Patient has had some loose bowel movements but no diarrhea. No hematemesis has been noted. No melena hematochezia has been appreciated. Patient is not had any fever or chills at the nursing staff is aware. Today patient started having elevated blood sugars in the 400s. Patient is diabetic but is on oral hypoglycemic agents only. Patient was subsequently transferred to the ED. Since patient was not having good oral intake and was elected to admit the patient for further care and evaluation. It appears that the patient may need insulin therapy in order to maintain her blood sugars in the immediate future. Patient is usually not converses however she usually is up in a wheelchair propel herself around which she has not been doing. Home Medications: Ambulatory Orders Medication Instructions Recorded Acetaminophen [Non-Aspirin] 2 tab PO BID 07/25/17 Aspirin [Aspirin EC] 1 tab PO DAILY 07/25/17 Docusate Sodium [Move It Along] 1 tab PO DAILY 07/25/17 Metoprolol Succinate [Toprol Xl] 1 tab PO BID 07/25/17 Cefdinir 300 mg PO BID #14 capsule 07/29/17 Insulin Detemir [Levemir Flex-Pen] 5 unit SQ HS #15 ml 07/29/17 Ranitidine HCl [Acid Business Services Assistant] 150 mg PO BID #60 tablet 07/29/17 Allergies/Adverse Reactions: Allergies Allergy/AdvReac Type Severity Reaction Status Date / Time No Known Allergies Allergy Verified 07/25/17 07:09 Discharge Summary: Patient was initially started on IV fluids of the normal saline. Patient did develop some type her premia and fluids for switch to 1/2 D5W. Patient .had resolution of her hyponatremia. Initially patient was started on Zosyn for treatment of her urinary sepsis patient initial W BC count was 15,600. The did go up to 17,000 the next day. At the time to discharge it had returned to normal as 6200. Blood cultures were done and subsequently came back no growth. Your culture was done and subsequently came back greater than 100,000 colonies of E. coli. The urinary tract infection was sensitive to Unasyn . Patient hemoglobin initially was 14.2 at the time to discharge it did drop down to 9.1 but was stable. It was felt that the change for secondary to deletion. Patient did not have any evidence of any G.I. bleeding. Blood sugars initially were elevated in the 300 range. Patient was started on sliding scale insulin. Once infection was under control the blood sugar did decrease. At the time to discharge patient with eating better remain nonverbal but appear to be at her baseline for her mental status. It was felt that the patient could be discharged home safely back to [facility] for further treatment. Patient with discharged in stable but guarded condition. - Final Diagnosis (1) Sepsis due to urinary tract infection Problems: under treatment (2) Dehydration Problems: improved (3) Dementia Problems: stable at baseline (4) Hypertension Problems: stable on home meds (5) Diabetes type 2, uncontrolled Problems: stable (6) Nausea and vomiting Problems: resolved
== END 2017-07-29 18:00 | DRG 872 ==
LOC: ED 06:54 → SOUTH 10:05
PROVIDERS: ADMIT Family Medicine; ATTEND Family Medicine
DX: A41.89 Other specified sepsis (principal); E86.0 Dehydration; F03.90 Unspecified dementia, unspecified severity, without behavioral disturbance, psychotic disturbance, mood disturbance, and anxiety; E11.9 Type 2 diabetes mellitus without complications; I10 Essential (primary) hypertension; R41.0 Disorientation, unspecified; E03.8 Other specified hypothyroidism; E78.5 Hyperlipidemia, unspecified
CPT/HCPCS: 36415; 71045; 74018; 80048; 80053; 81002; 83525; 83605; 85025; 87040; 87086; 87186; J0690; J0696; J1650; J1815; J2405; J2543; J7030; 96360; 96361; 99222; 99232; 99238; S1016; S5010

== ENCOUNTER 2018-08-26 07:30 | Outpatient (CLI) | payer MEDICARE, OTHER ==
[2018-08-26 09:22] LABS: A1C 7.8 % (<5.7)
[2018-08-26 10:22] LABS: eGFR (Non-African) > 60
== END 2018-08-26 07:35 ==
LOC: LAB 07:30
PROVIDERS: ATTEND Nurse Practitioner Family
DX: E11.9 Type 2 diabetes mellitus without complications (principal); I10 Essential (primary) hypertension; F03.90 Unspecified dementia, unspecified severity, without behavioral disturbance, psychotic disturbance, mood disturbance, and anxiety
CPT/HCPCS: 80053; 83036

== ENCOUNTER 2018-09-23 09:00 | Outpatient (CLI) | payer MEDICARE, OTHER ==
[2018-09-23 10:16] LABS: BASOPHILS % 0.3 % (0.0-1.5); NEUTROPHILS # 3.9 # k/uL (1.4-7.7); eGFR (Non-African) > 60
[2018-09-23 10:17] LABS: A1C 6.2 % (<5.7)
== END 2018-09-23 09:03 ==
LOC: LAB 09:00
PROVIDERS: ATTEND Nurse Practitioner Family
DX: I63.9 Cerebral infarction, unspecified (principal); K21.9 Gastro-esophageal reflux disease without esophagitis; F03.90 Unspecified dementia, unspecified severity, without behavioral disturbance, psychotic disturbance, mood disturbance, and anxiety
CPT/HCPCS: 80053; 83036; 85025

== ENCOUNTER 2018-10-28 07:25 | Outpatient (CLI) | payer MEDICARE, OTHER ==
[2018-10-28 08:26] LABS: eGFR (Non-African) 40
== END 2018-10-28 07:27 ==
LOC: LAB 07:25
PROVIDERS: ATTEND Nurse Practitioner Family
DX: I63.9 Cerebral infarction, unspecified (principal); K21.9 Gastro-esophageal reflux disease without esophagitis; G30.9 Alzheimer's disease, unspecified
CPT/HCPCS: 36415; 80053; P9603

== ENCOUNTER 2018-11-14 11:15 | Outpatient (CLI) | payer MEDICARE, OTHER ==
[2018-11-14 11:51] LABS: BASOPHILS % 0.3 % (0.0-1.5); NEUTROPHILS # 10.2 # k/uL (1.4-7.7)
[2018-11-14 12:00] LABS: eGFR (Non-African) > 60
== END 2018-11-14 11:17 ==
LOC: LAB 11:15
PROVIDERS: ATTEND Nurse Practitioner Family
DX: K59.00 Constipation, unspecified (principal)
CPT/HCPCS: 36415; 80053; 85025; P9603

== ENCOUNTER 2018-11-15 08:20 | Outpatient (CLI) | payer MEDICARE, OTHER ==
[2018-11-15 08:23] LABS: APPEARANCE,URINE CLOUDY (CLEAR); COLOR,URINE YELLOW (YELLOW); OCCULT BLOOD,URINE NEGATIVE (NEGATIVE); UROBILINOGEN URINE 0.2 Eu (0.2-1.0)
== END 2018-11-15 08:23 ==
LOC: LAB 08:20
PROVIDERS: ATTEND Nurse Practitioner Family
DX: N31.0 Uninhibited neuropathic bladder, not elsewhere classified (principal); N39.0 Urinary tract infection, site not specified
CPT/HCPCS: 81002; 87086; 87186